=== PATIENT | female | born 1980 | race Caucasian/White ===

== ENCOUNTER → 2018-09-05 07:30 | Outpatient (CLI) | payer OTHER, SELFPAY ==
--- NOTE | 2018-09-05 | HID_PTH ---
PATIENT: RODRÍGUEZ WOODY LOC: [facility] U#:[id number] AGE/SX: 44/F ROOM: RE09/05/[address]: Dr. Tino Cook MD : 1980 BED: DIS: SPEC #: [id number] RECD: 09/05/18 10:47 STATUS: ROSELYN MAHARAJ #: [id number] KYE: 09/05/18 00:[address]: Tino Cook DEPT: SURGICAL PATHOLOGY RECD BY: Lito Anderson ENTERED: 09/07/18 08:06 SP TYPE: Jeanmarieradenit LUIS F DR: Dr. Alfred Woodard MD Tissues: Inguinal region, NOS Procedures: Surgery Specimen Level III HEADER OPERATION: Excision right groin hidradenitis PRE-OP DIAGNOSIS: Hidradenitis TISSUE SUBMITTED: Right groin tissue MICROSCOPIC DIAGNOSIS Right groin tissue, excision: Dermal abscesses with entrapped hair and associated reactive change consistent with hidradenitis. Focal skin ulceration. AM:jillian 09/08/18 COMMENT Case has been reviewed in consultation with Dr. Leyva who concurs with the above diagnosis. IDC:CE MICROSCOPIC DESCRIPTION Slides are reviewed. GROSS DESCRIPTION Received in fixative is one container labeled with the patient's name and designated right groin. The specimen consists of an ellipse of light hollis excised skin measuring 2.6 x 1.5 cm and depth of excision measuring 0.9 cm. The cutaneous surface contains a light hollis lesion measuring 0.8 cm in greatest dimension. The specimen is inked, serially sectioned and totally submitted in two cassettes. / AM:jillian 09/07/18 TC:2 CPT: 11508
[2018-09-05 07:09] VITALS: BMI 33.0
== END ==
PROVIDERS: Family Provider Family Medicine; PCP Family Medicine; Referring Provider Surgery; Visit Provider Surgery
DX: L73.2 Hidradenitis suppurativa (principal)
CPT/HCPCS: 88304

== ENCOUNTER → 2025-04-25 | Outpatient (CLI) | payer BC, SELFPAY ==
[2025-04-25 09:13] LABS: EXAGEN MAILED SPECIMEN
[2025-04-25 10:58] LABS: Color, Urine Straw (Yellow); Glucose, Dipstick Normal (Normal); Ketone-Dipstick Negative (Negative); Leukocyte Esterase-Dipstick Negative /ul (Negative); Nitrite-Dipstick Negative (Negative); Occult Blood-Urine Negative /ul (Negative); Protein-Dipstick Negative (Negative); Specific Gravity, Urine 1.010 (1.002-1.030); Urine Bilirubin Dipstick Negative (Negative)
[2025-04-25 11:00] LABS: Hematocrit 39.1 % (37-47); Hemoglobin 13.4 g/dL (12.0-15.0); Immature Granulocytes Count 0.010 X10^3/uL (0.0-0.0); Mean Corp Hgb Conc 34.3 g/dL (32-36); Mean Corpuscular Volume 90.3 fL (81-99); Mean Platelet Vol. 9.5 fl (6.2-12.0); NRBC Flagged by Analyzer 0 % (0-5); POSITIVE DIFFERENTIAL YES; Platelet Count 247 K/mm3 (150-450); RBC Distribution Width CV 12.2 % (11.6-14.6); RBC Distribution Width SD 40.6 fl (35.1-43.9); Red Blood Count 4.33 M/mm3 (4.2-5.4); White Blood Count 3.4 K/mm3 (4.4-11.0)
[2025-04-25 11:06] LABS: Differential Indicated SCAN CRITERIA MET
[2025-04-25 11:16] LABS: Creatinine, Urine (random) 12.30 mg/dL (28.00-217.00); Protein, Urine (Random) < 6.0 mg/dL (0.0-12.0); Protein:Creat Ratio 238 mg/g CRE (0-200)
[2025-04-25 11:34] LABS: Differential Comment SCANNED
[2025-04-25 11:52] LABS: AST(SGOT) 25 U/L (<=31); Alanine Aminotransfer ALT/SGPT 30 U/L (<=34); Albumin, Serum 4.5 g/dL (3.5-5.0); Alkaline Phosphatase 82 U/L (35-104); Anion Gap 12 (5-15); BUN 14 mg/dL (4-19); BUN/Creat Ratio 19.6 RATIO (10-20); Calcium,Total 9.2 mg/dL (7.6-11.0); Carbon Dioxide 22.9 mmol/L (21.0-32.0); Chloride 105 mmol/L (98-108); Globulin 2.4 g/dL (2.2-4.2); Glucose 81 mg/dL (70-99); Hepatitis B Surface Antigen Nonreactive (Nonreactive); Hepatitis C Antibody Nonreactive (Nonreactive); Potassium 4.1 mmol/L (3.3-5.1)
[2025-04-27 04:07] LABS: Dilute Russell Viper Venom 36.4 sec (0.0-47.0); Interpretation Comment: (.); PTT-LA 28.6 sec (0.0-43.5)
== END | disposition home or self-care (01) ==
LOC: MTLAB 08:10
PROVIDERS: PCP Nurse Practitioner Family; Referring Provider Internal Medicine Rheumatology; Visit Provider Internal Medicine Rheumatology
DX: M06.4 Inflammatory polyarthropathy (principal); R76.8 Other specified abnormal immunological findings in serum; D70.9 Neutropenia, unspecified; L40.8 Other psoriasis
CPT/HCPCS: 36415; 80053; 81002; 82570; 84156; 85025; 86706; 86803; 87340